=== PATIENT | female | born 1980 | race Caucasian/White ===

== ENCOUNTER 2016-11-15 14:04 | Emergency (ER) | payer OTHER ==
[2016-11-15 14:13] VITALS: TEMP 97.9
[2016-11-15 14:38] LABS: % IMMATURE GRANULYOCYTES 0.3 % (0.0-1.1); ABSOLUTE IMMATURE GRANULOCYTES 0.04 10^3/uL (0.00-0.10); ADD DIFF? NO; ADD MORPH? NO; ADD SCAN? NO; ATYPICAL LYMPHOCYTE FLAG 0 (0-99); FRAGMENT RBC FLAG 0 (0-99); HEMATOCRIT 45.8 % (38.0-47.0); HEMOGLOBIN 16.4 g/dL (12.6-16.3); LEFT SHIFT FLG 0 (0-99); LIPEMIA HEMOLYSIS FLAG 90 (0-99); MEAN CELL HEMOGLOBIN 32.7 pg (27.9-34.1); MEAN CELL HEMOGLOBIN CONCENTR. 35.8 g/dL (32.4-36.7); MEAN CELL VOLUME 91.2 fL (81.5-99.8); MEAN PLATELET VOLUME 10.1 fL (8.7-11.7); PLATELET CLUMPS FLAG 0 (0-99); PLATELET COUNT 233 10^3/uL (150-400); RED BLOOD CELL COUNT 5.02 10^6/uL (4.18-5.33); RED CELL DISTRIBUTION WIDTH 11.5 % (11.5-15.2)
[2016-11-15] MEDS ORDERED: ONDANSETRON 4 MG/2 ML VIAL ONE (14:38)
[2016-11-15] MEDS ORDERED: HYDROmorphONE/DILAUDID 1 MG/ML SYR ONE (14:39)
[2016-11-15 14:47] LABS: ANION GAP 11 mEq/L (8-16); CALCIUM 9.6 mg/dL (8.5-10.4); CARBON DIOXIDE 20 mEq/l (22-31); CHLORIDE 106 mEq/L (97-110); CREATININE 0.8 mg/dL (0.6-1.0); GLOMERULAR FILTRATION RATE > 60; GLUCOSE 94 mg/dL (70-100); POTASSIUM 4.4 mEq/L (3.5-5.2); SODIUM 137 mEq/L (134-144)
[2016-11-15] MEDS ORDERED: NS 1,000 ML IV ONE (14:49)
--- NOTE | 2016-11-15 14:55 | EDPHY ---
H & P Stated Complaint: abd pain Time Seen by Provider: 11/15/16 14:36 HPI/ROS: CHIEF COMPLAINT: Abdominal pain HISTORY OF PRESENT ILLNESS: The patient is a 36-year-old female who comes to the emergency department complaining of severe left upper quadrant and left lower quadrant abdominal pain. She states that this began this morning and is similar to her fluctuating history of erosive gastritis. She had extensive workup done primarily in [place] including multiple CT scans, upper and lower endoscopies and was ultimately diagnosed with erosive gastritis. She states that it is typically controlled with Librex. It got worse however after eating pulled pork last night. She states that she is not really supposed to eat pulled pork. She does not have any heartburn or chest pain type symptoms. She denies shortness of breath. She has been afebrile. She denies urinary or vaginal complaints. She denies risk of . She also complains of bloating and being constipated since yesterday. No history of abdominal surgery. REVIEW OF SYSTEMS: Constitutional: denies: chills, fever, recent illness, recent injury EENTM: denies: blurred vision, double vision, nose congestion Respiratory: denies: cough, shortness of breath Cardiac: denies: chest pain, irregular heart rate, lightheadedness, palpitations Gastrointestinal/Abdominal: See HPI Genitourinary: denies: dysuria, frequency, hematuria, pain Musculoskeletal: denies: joint pain, muscle pain Skin: denies: lesions, rash, jaundice, bruising Neurological: denies: headache, numbness, paresthesia, tingling, dizziness, weakness Hematologic/Lymphatic: denies: blood clots, easy bleeding, easy bruising Immunologic/allergic: denies: HIV/AIDS, transplant EXAM: GENERAL: Well-appearing, well-nourished and in no acute distress. HEAD: Atraumatic, normocephalic. EYES: Pupils equal round and reactive to light, extraocular movements intact, sclera anicteric, conjunctiva are normal. ENT: TMs normal, nares patent, oropharynx clear without exudates. Moist mucous membranes. NECK: Normal range of motion, supple without lymphadenopathy or JVD. LUNGS: Breath sounds clear to auscultation bilaterally and equal. No wheezes rales or rhonchi. HEART: Regular rate and rhythm without murmurs, rubs or gallops. ABDOMEN: Mildly distended, tender left upper quadrant and left lower quadrant. BACK: No CVA tenderness, no spinal tenderness, step-offs or deformities EXTREMITIES: Normal range of motion, no pitting or edema. No clubbing or cyanosis. NEUROLOGICAL: Cranial nerves II through XII grossly intact. Normal speech, normal gait. 5/5 strength, normal movement in all extremities, normal sensation PSYCH: Normal mood, normal affect. SKIN: Warm, dry, normal turgor, no visible rashes or lesions. Source: Patient Exam Limitations: No limitations - Personal History LMP (Females 10-55): 15-21 Days Ago Current Tetanus Diphtheria and Acellular Pertussis (TDAP): Yes - Medical/Surgical History Hx Asthma: No Hx Chronic Respiratory Disease: No Hx Diabetes: No Hx Cardiac Disease: No Hx Renal Disease: No Hx Cirrhosis: No Hx Alcoholism: No Hx HIV/AIDS: No Hx Splenectomy or Spleen Trauma: No Other PMH: erosive gastritis, knee pain - Family History Significant Family History: No pertinent family hx - Social History Smoking Status: Current every day smoker Alcohol Use: Sober Drug Use: None Constitutional: Initial Vital Signs Temperature (C) 36.6 C 11/15/16 14:11 Heart Rate 103 H 11/15/16 14:11 Respiratory Rate 20 11/15/16 14:11 Blood Pressure 136/113 H 11/15/16 14:11 O2 Sat (%) 96 11/15/16 14:11 O2 Delivery Mode Room Air Allergies/Adverse Reactions: No Known Allergies Allergy (Unverified 11/15/16 14:10) Home Medications: Medication Instructions Recorded Librax (*) 11/15/16 Simethicone [Gas Relief] 125 mg PO QID #30 tab.chew 11/15/16 predniSONE 60 mg PO DAILY #15 tab 11/15/16 Medical Decision Making - Diagnostics EKG Interpretation: An EKG obtained and was read and documented in trace view. Please see trace view for full reading and report. Sinus rhythm, no acute ischemic changes Imaging: Results: CT scan of the abdomen pelvis was obtained. The results of the study are negative. The study was read by Dr. Omer Mercado . I viewed the images myself on the PACS system. ED Course/Re-evaluation: 4:30 p.m. we discussed her CT and lab results which are reassuring. She is happy. Her pain is improved. She states that she is passing gas but is asking for something to help with bloating. We discussed Gas-X. She will continue taking her antispasmodic medications as well. We discussed follow-up as well as indications for returning to the emergency department Differential Diagnosis: Partial list of the Differential diagnosis considered include but were not limited to; gastritis, peptic ulcer disease, obstruction and although unlikely based on the history and physical exam, I also considered biliary disease, appendicitis, diverticulitis, kidney stone, urinary tract, acute coronary disease. I discussed these differential diagnoses and the plan with the patient as well as the usual and expected course. The patient understands that the diagnosis is provisional and that in medicine we are not always correct and that further workup is often warranted. Usual and customary warnings were given. All of the patient's questions were answered. The patient was instructed to return to the emergency department should the symptoms at all worsen or return, otherwise to followup with the physician as we discussed. - Data Points Laboratory Results: Laboratory Results 11/15/16 14:22 11/15/16 14:22 11/15/16 11/15/16 11/15/16 16:05 14:51 14:22 WBC 13.27 H 10^3/uL (3.80-9.50) RBC 5.02 10^6/uL (4.18-5.33) Hgb 16.4 H g/dL (12.6-16.3) Hct 45.8 % (38.0-47.0) MCV 91.2 fL (81.5-99.8) MCH 32.7 pg (27.9-34.1) MCHC 35.8 g/dL (32.4-36.7) RDW 11.5 % (11.5-15.2) Plt Count 233 10^3/uL (150-400) MPV 10.1 fL (8.7-11.7) Neut % (Auto) 70.6 % (39.3-74.2) Lymph % (Auto) 23.6 % (15.0-45.0) [place] % (Auto) 4.7 % (4.5-13.0) Eos % (Auto) 0.5 L % (0.6-7.6) Baso % (Auto) 0.3 % (0.3-1.7) Nucleat RBC Rel Count 0.0 % (0.0-0.2) Absolute Neuts (auto) 9.36 H 10^3/uL (1.70-6.50) Absolute Lymphs (auto) 3.13 H 10^3/uL (1.00-3.00) Absolute Monos (auto) 0.63 10^3/uL (0.30-0.80) Absolute Eos (auto) 0.07 10^3/uL (0.03-0.40) Absolute Basos (auto) 0.04 10^3/uL (0.02-0.10) Absolute Nucleated RBC 0.00 10^3/uL (0-0.01) Immature Gran % 0.3 % (0.0-1.1) Immature Gran # 0.04 10^3/uL (0.00-0.10) Sodium 137 mEq/L (134-144) Potassium 4.4 mEq/L (3.5-5.2) Chloride 106 mEq/L (97-110) Carbon Dioxide 20 L mEq/l (22-31) Anion Gap 11 mEq/L (8-16) BUN 14 mg/dL (7-23) Creatinine 0.8 mg/dL (0.6-1.0) Estimated GFR > 60 Glucose 94 mg/dL (70-100) Calcium 9.6 mg/dL (8.5-10.4) Total Bilirubin 0.7 mg/dL (0.1-1.4) Conjugated Bilirubin 0.3 mg/dL (0.0-0.5) Unconjugated Bilirubin 0.4 mg/dL (0.0-1.1) AST 26 IU/L (14-46) ALT 27 IU/L (9-52) Alkaline Phosphatase 50 IU/L (38-126) Total Protein 7.4 g/dL (6.3-8.2) Albumin 4.3 g/dL (3.5-5.0) Lipase 77.0 IU/L (23-300) Beta HCG, Qual NEGATIVE Urine Color PALE YELLOW Urine Appearance CLEAR Urine pH 5.0 (5.0-7.5) Ur Specific [place] > 1.035 H (1.002-1.030) Urine Protein NEGATIVE (NEGATIVE) Urine Ketones NEGATIVE (NEGATIVE) Urine Blood NEGATIVE (NEGATIVE) Urine Nitrate NEGATIVE (NEGATIVE) Urine Bilirubin NEGATIVE (NEGATIVE) Urine Urobilinogen NEGATIVE EU (0.2-1.0) Ur Leukocyte Esterase NEGATIVE (NEGATIVE) Ur Culture Indicated? NOT INDICATED (NI) Urine Glucose NEGATIVE (NEGATIVE) Medications Given: Discontinued Medications Hydromorphone HCl (Dilaudid) 1 mg IVP EDNOW ONE Stop: 11/15/16 15:18 Last Admin: 11/15/16 15:00 Dose: 1 mg Sodium Chloride (Ns) 1,000 mls @ 0 mls/hr IV ONCE ONE PRN Reason: Wide Open Stop: 11/15/16 14:50 Last Admin: 11/15/16 15:03 Dose: 1,000 mls Ondansetron HCl (Zofran) 4 mg IVP EDNOW ONE Stop: 11/15/16 15:18 Last Admin: 11/15/16 15:00 Dose: 4 mg Departure - Departure Disposition: Home, Routine, Self-Care Clinical Impression: Abdominal pain Qualifiers: Qualifier Code: (R10.84) Generalized abdominal pain Condition: Fair Instructions: Abdominal Pain (ED) Referrals: NONE *PRIMARY CARE P,. [Primary Care Provider] - As per Instructions Elisa Mccall MD [Medical Doctor] - As per Instructions Prescriptions: Simethicone [Gas Relief] 125 mg PO QID #30 tab.chew predniSONE 60 mg PO DAILY #15 tab
[2016-11-15] MEDS ORDERED: IOPAMIDOL (ISOVUE-300) 100 ML BTL IV ONE (15:14)
[2016-11-15] MEDS ORDERED: ONDANSETRON 4 MG/2 ML VIAL IVP ONE (15:17)
[2016-11-15] MEDS ORDERED: HYDROmorphONE/DILAUDID 1 MG/ML SYR IVP ONE (15:17)
--- NOTE | 2016-11-15 15:48 | CT ---
CT Scan of the Abdomen and Pelvis (With Contrast) at 1529 hours History: Left-sided abdominal pain Technique: Axial computed tomographic images of the abdomen and pelvis were obtained with the unevent ful intravenous administration of 90 mL Isovue-300 contrast. No oral or rectal contrast which limits the study. Dose reduction techniques were utilized. CT Abdomen Findings: Lung bases: Normal. Liver: Normal. Biliary system: No obstruction. Spleen: Normal. Pancreas: Normal. Adrenals: Normal. Kidneys: No obstruction or solid masses.. Abdominal Aorta: No aneurysm. No bowel obstruction, ascites, or significant retroperitoneal lymphadenopathy. CT Pelvis Findings: No pelvic fluid collections. No significant adenopathy. Appendix appears normal w ithout inflammatory changes. Impression: 1. No evidence of hepatosplenomegaly, urinary tract obstruction, or pneumoperitoneum. 2. No CT evidence of appendicitis, abscess or bowel obstruction. 3. Normal CT abdomen and pelvis. Findings and recommendations discussed with Emergency Department physician, Dr. Kessler at 1540 hour, today. Final report concurs with initial preliminary interpretation.
[2016-11-15 15:59] LABS: ALBUMIN 4.3 g/dL (3.5-5.0); BILIRUBIN,TOTAL 0.7 mg/dL (0.1-1.4); BILIRUBIN-CONJUGATED 0.3 mg/dL (0.0-0.5); BILIRUBIN-UNCONJUGATED 0.4 mg/dL (0.0-1.1); TOTAL PROTEIN 7.4 g/dL (6.3-8.2)
[2016-11-15 16:17] VITALS: RESP 16
[2016-11-15 16:17] LABS: COLOR PALE YELLOW; LEUKOCYTE ESTERASE,URINE NEGATIVE (NEGATIVE); NITRITE,URINE NEGATIVE (NEGATIVE)
[2016-11-15 17:10] VITALS: BP 107/77; PULSE 66; O2SAT 96
--- NOTE | 2016-11-15 17:23 | CPEKG ---
Heart Rate: 63 RR Interval: 952 P-R Interval: 156 QRSD Interval: 86 QT Interval: 452 QTC Interval: 463 P Friendship: 16 QRS Friendship: 67 T Wave Friendship: 35 EKG Severity - NORMAL ECG - EKG Impression: SINUS RHYTHM Electronically Signed By: Johan Kessler 15-Nov-2016 18:11:06
== END 2016-11-15 17:09 | disposition home or self-care (01) ==
DX: R10.84 Generalized abdominal pain (principal); F17.200 Nicotine dependence, unspecified, uncomplicated
CPT/HCPCS: 96374; J1170; J2405; Q9967

== ENCOUNTER 2017-02-04 17:36 | Emergency (ER) | payer OTHER ==
[2017-02-04 17:46] VITALS: RESP 18; TEMP 98.1
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
[2017-02-04] MEDS ORDERED: IBUPROFEN 600 MG TAB PO ONE (20:14)
[2017-02-04 20:21] VITALS: BP 137/115; PULSE 84; O2SAT 98
== END 2017-02-04 20:21 | disposition home or self-care (01) ==
DX: S16.1XXA Strain of muscle, fascia and tendon at neck level, initial encounter (principal); F17.200 Nicotine dependence, unspecified, uncomplicated; V89.2XXA Person injured in unspecified motor-vehicle accident, traffic, initial encounter; Y92.410 Unspecified street and highway as the place of occurrence of the external cause; Y93.89 Activity, other specified